=== PATIENT | male | born 1975 | race Caucasian/White ===

== ENCOUNTER 2016-12-30 17:30 | Inpatient (IN) | payer SELFPAY ==
[~2016-12-30] VITALS: Ht 172.7 cm; Wt 76.5 kg
--- NOTE | ~2016-12-30 | DS ---
PATIENT'S NAME: SRIDEVI ARRIETA [facility] AGE: 41 Y [address] ROOM: [address] [address] LOCATION: GICU ADMIT DATE: 12/30/2016 Discharge Summary DISCHARGE DATE: 12/31/2016 FAMILY PHYSICIAN: Physician, Unknown ATTENDING PHYSICIAN: Lizbet Aparicio The patient during this hospitalization. HOSPITAL COURSE: A 41-year-old gentleman with a known past medical history of end-stage liver disease who continued to drink and had multiple upper GI bleed secondary to his esophageal varices, was transferred here from outside facility with acute hypovolemic shock secondary to upper GI bleed. He was intubated and appropriate intravenous access was obtained. He was started on massive transfusion protocol given his low hemoglobin level. Gastroenterology consultation was obtained and upper endoscopy was undertaken. Our lining mechanic was able to band one varices and he recommended an emergent tips. After the endoscopy, the patient continued to be in hypovolemic shock. Attempts were made to transfer the patient out of our facility where an interventional radiologist available. Due to the lack of availability of the ICU beds at [facility], he could not be transferred over there. We continued to aggressively volume resuscitate this patient with minimal success given that his blood pressure continued to drop. His metabolic abnormalities were getting worse and I believe he went to disseminated intravascular coagulation. The patient went into cardiac arrest with asystole. He was coded per ACLS protocol with the return of circulation in about 7 minutes. Family was at bedside. The patient's prognosis was discussed with the family. Attempts were made to transfer the patient to [place] to an ICU who were gracious enough to accept the patient for emergent tips, but he was too unstable to be transferred. The patient's prognosis and current condition were discussed with the family including fiance and brother and they decided to make him comfort care rather than focusing on treating him at this point. The patient was made comfort care and soon after the patient . PRINCIPAL DIAGNOSES: 1. Acute hypovolemic shock. 2. Acute blood loss anemia. 3. Upper gastrointestinal bleed secondary to esophageal varices. 4. End-stage liver disease. MD ROSANA PAREKH/modl PATIENT'S NAME: SRIDEVI ARRIETA [facility] AGE: 41 Y [address] ROOM: [place] [address] LOCATION: [facility] ADMIT DATE: 12/30/2016 Discharge Summary DISCHARGE DATE: 12/31/2016 FAMILY PHYSICIAN: , Sumit ATTENDING PHYSICIAN: Lizbet Aparicio /[id number] d: 01/03/17614 t: 01/06/17 1121, DISCHARGE SUMMARY
--- NOTE | ~2016-12-30 | HP ---
PATIENT'S NAME: SRIDEVI ARRIETA [facility] AGE: 41 Y [address] ROOM: [place] [address] LOCATION: GICU ADMIT DATE: 12/30/2016 History & Physical DISCHARGE DATE: FAMILY PHYSICIAN: PHYSICIAN, UNKNOWN ATTENDING PHYSICIAN: ALFA QUINTANILLA DATE OF SERVICE: CHIEF COMPLAINT: Acute GI bleed, hemorrhagic shock. HISTORY OF PRESENT ILLNESS: This is a 41-year-old male with a known history of alcohol abuse, cirrhosis from this, recurrent upper GI esophageal bleeds, and multiple admissions including ICU stay 2 other times in the last 2 months who presents today to the emergency room in [place] with recurrent hematemesis and was noted to be in hemorrhagic shock. The patient had been having nausea and vomiting and still continues to drink and this has been going on for the past 2 days and hematemesis started last night and got to a point where it was severe enough and was brought to the emergency room for evaluation. The patient upon initial workup was noted to have a hemoglobin of 4 with low blood pressures and signs and symptoms consistent with hemorrhagic shock. The patient was given 4 units of PRBCs and due to persistence of nausea, vomiting, and hematemesis, the patient was intubated and transferred over to [facility] ICU here. The patient upon presentation here continued to have hematemesis with his blood pressures in the 60s/40s. The patient has just received 2 more units of PRBCs with 2 more to be given and an additional 2 units of FFP are in the works and these are being transfused emergently. The patient is also on Levophed drip. GI Service has been consulted and he is in the works to get emergent EGD. I have had a long discussion with the patient's brother and about the patient's state and they understand the patient has troubles with the continuing alcohol abuse despite his severe illness from it. PAST MEDICAL HISTORY: 1. Alcohol abuse. 2. Cirrhosis. 3. Upper GI bleed. SOCIAL HISTORY: The patient is known to have alcohol abuse. He is also smoker. Lives with girlfriend. FAMILY HISTORY: Significant for lung cancer in the father. MEDICATIONS: PATIENT'S NAME: SRIDEVI ARRIETA [facility] AGE: 41 Y [address] ROOM: [place] [address] LOCATION: GICU ADMIT DATE: 12/30/2016 History & Physical DISCHARGE DATE: FAMILY PHYSICIAN: PHYSICIAN, UNKNOWN ATTENDING PHYSICIAN: ALFA QUINTANILLA Per JAN. REVIEW OF SYSTEMS: As per HPI. All other systems were reviewed and are negative. OBJECTIVE: VITAL SIGNS: Blood pressure at presentation 56/41, temperature 98, and pulse 104. GENERAL: Intubated and sedated. HEAD: Normocephalic, atraumatic. NECK: Supple. No JVD. HEENT: Visible bright red blood over his mouth noted. SKIN: Without rashes or lesions. HEART: S1, S2. Regular rate and rhythm. LUNGS: Clear to auscultation bilaterally. ABDOMEN: Distended, but otherwise soft with positive bowel sounds. EXTREMITIES: Without edema. LABORATORY DATA: Hemoglobin level from [place] 4.0. ASSESSMENT AND PLAN: 1. Acute upper gastrointestinal bleed. This is in the setting of known variceal bleed, status post multiple banding. The patient is being aggressively volume resuscitated and he has received 4 units of packed red blood cells and I am giving 2 more units and we will continue to transfuse for as long as he needs volume resuscitation and until upper gastrointestinal bleed source is identified and possibly stopped. He is about to undergo emergent EGD currently. We will also give 2 units of fresh frozen plasma in this setting due to the patient receiving massive packed red blood cells transfusions. We will also give prophylactic ceftriaxone and GI is following closely. The patient if he survives this would be evaluated for a transjugular intrahepatic portosystemic shunt procedure at this point. 2. Cirrhosis from alcohol abuse. 3. Acute blood loss anemia. Manage as per acute upper gastrointestinal bleed. 4. Hemorrhagic shock. Managed as above. 5. Acute respiratory failure. The patient is intubated and sedated due to impending respiratory arrest due to massive hematemesis. ALFA QUINTANILLA MD PATIENT'S NAME: SRIDEVI ARRIETA [facility] AGE: 41 Y [address] ROOM: [address] [place] [address] LOCATION: GICU ADMIT DATE: 12/30/2016 History & Physical DISCHARGE DATE: FAMILY PHYSICIAN: PHYSICIAN, UNKNOWN ATTENDING PHYSICIAN: ALFA QUINTANILLA/loren /[id number] D: [id number] T: [id number] HISTORY & PHYSICAL
--- NOTE | ~2016-12-30 | CON ---
PATIENT'S NAME: SRIDEVI ARRIETA [facility] AGE: 41 Y [address] ROOM: [place] [address] LOCATION: GICU ADMIT DATE: 12/30/2016 Consultation DISCHARGE DATE: FAMILY PHYSICIAN: PHYSICIAN, UNKNOWN ATTENDING PHYSICIAN: ALFA QUINTANILLA REFERRING PHYSICIAN: VAL TILLEY MD The patient is in ICU 6202. REASON FOR CONSULT: GI bleed. HISTORY OF PRESENT ILLNESS: Mr. Mcmahon is a 41-year-old male, known to me from his previous admissions in September and then again in October of 2016 with upper GI bleed. The patient is known to have alcoholic cirrhosis of the liver and presented with upper GI bleed in September of 2016. At that time, he was found to have a bleeding antral ulcer, which was cauterized, clipped, as well as underwent distal esophageal variceal banding. The patient improved and was discharged to home only to continue drinking, whereby he presented again towards late October with upper GI bleed and was found to have remnant varices, which were banded along with clipping of one area of the previous banded ulcer, which was oozing. He also underwent paracentesis and was discharged home in stable condition on November 23, 2016. According to the history available, he has not been feeling well over the last 2 weeks, whereby he has had poor energy according to his girlfriend and then started throwing up blood this morning. Unfortunately, he continues to drink since after his discharge in early November up to one pint of vodka daily as tested by his girlfriend. He was seen in his local emergency room and was found to have a hemoglobin of 4 and was transferred here for further management. At this point, the patient is intubated and is actually oozing from his mouth as well as his area whereby central line was placed. Review of the labs reveals a hemoglobin of 6.0 after 6 units of packed RBCs (previous hemoglobin 4.0), INR of 2.2, platelets of 53,000, MCV of 107, white cell count of 9.3. Verbally, the patient has been given IV erythromycin, IV Rocephin, as well as IV Protonix, as well as IV bolus of octreotide 50 mcg, followed by 50 mcg an hour infusion. PAST MEDICAL HISTORY: As noted above with alcoholic cirrhosis of the liver, complicated with ascites and variceal banding, history of alcohol dependence, and hypertension. PAST SURGICAL HISTORY: EGD with banding and clipping, last procedure on November 19, 2016, as well as PATIENT'S NAME: SRIDEVI ARRIETA [facility] AGE: 41 Y [address] ROOM: [place] [address] LOCATION: GICU ADMIT DATE: 12/30/2016 Consultation DISCHARGE DATE: FAMILY PHYSICIAN: PHYSICIAN, UNKNOWN ATTENDING PHYSICIAN: ALFA QUINTANILLA abdominal paracentesis with removal of 5 L of ascitic fluid. MEDICATIONS: On discharge included: 1. Omeprazole 20 mg b.i.d. 2. Aldactone 50 mg daily. 3. Lisinopril and hydrochlorothiazide 10/12.5 mg daily. 4. Acetaminophen p.r.n. 5. Tramadol 50 mg p.r.n. 6. Multivitamin daily. It is not clear if the patient has been compliant with his medications and/or any kind of followups. It is noted in his discharge summary that he refused any consideration of referral for alcohol treatment or support with alcoholics anonymous. REVIEW OF SYSTEMS: None available. PHYSICAL EXAMINATION: GENERAL: The patient is intubated and sedated. VITAL SIGNS: His vital signs reveal blood pressure 114/60 on Levophed drip, heart rate of 94 per minute. He is intubated, sedated, and unable to respond to verbal commands. HEENT: Pupils are reactive to light. Nonicteric sclerae. NECK: Supple. CHEST: Bilateral poor air entry. HEART: S1, S2 normal. ABDOMEN: Very distended with evidence of ascites and an erythematous papular rash noted on his left flank area. Bowel sounds are decreased. EXTREMITIES: No edema. NEUROLOGIC: Unable to examine. LABORATORY DATA: Labs are reviewed and noted above. ASSESSMENT AND PLAN: A 41-year-old male with history of alcoholic cirrhosis of the liver, decompensated ascites, portal hypertension, previous episodes of variceal bleed and banding, with continued intake of alcohol, and now presenting with severe coagulopathy, INR of 2.2, platelets 53,000, MCV 107. Unable to calculate MELD score in view of nonavailability of labs. The patient has been given IV octreotide infusion as well as antibiotics as well as IV erythromycin as well as fresh frozen plasma with emergent endoscopy for diagnostic and therapeutic purposes. PATIENT'S NAME: SRIDEVI ARRIETA [facility] AGE: 41 Y [address] ROOM: [address] [place], [place] [address] LOCATION: [facility] ADMIT DATE: 12/30/2016 Consultation DISCHARGE DATE: FAMILY PHYSICIAN: PHYSICIAN, UNKNOWN ATTENDING PHYSICIAN: ALFA QUINTANILLA Intensivists are involved in view of his need for intubation as well as a possible need for a TIPS procedure in the near future. Further recommendations pending his clinical course. The patient's critical status has been discussed with his brother as well as his girlfriend in the waiting room. AVL TILLEY MD AM/loren /[id number] d: 12/30/162050 t: 12/31/16 0942, CONSULTATION REPORT
--- NOTE | ~2016-12-30 | OR ---
PATIENT'S NAME: SRIDEVI ARRIETA [facility] AGE: 41 Y [address] ROOM: [place] [address] LOCATION: [facility] ADMIT DATE: 12/30/2016 OR/Procedure Report DISCHARGE DATE: FAMILY PHYSICIAN: PHYSICIAN, UNKNOWN ATTENDING PHYSICIAN: ALFA QUINTANILLA SURGEON: Brooks Leone MD SORTING MACHINE OPERATOR: DATE OF PROCEDURE: 12/30/2016 Consent was done emergently. PROCEDURE: Right femoral central venous catheter insertion. PROCEDURE IN DETAIL: The patient was put in supine position. The right groin area was prepped and draped in usual fashion, the femoral pulse was then located, then an 18-gauge needle was used to puncture the femoral vein. A 0.035 J-tipped wire was inserted through the needle without any resistance, the needle was removed and then the 10 and 12-Albanian soft tissue dilator was advanced over the wire without any resistance. The 12-Albanian catheter was advanced over the wire without any resistance. Thus 3 ports of the catheter was aspirated for dark venous blood and then flushed with sterile saline. The patient tolerated the procedure well. There were no immediate complications. Thank you for allowing me to participate in the care of this patient. MD SUSAN STARR/loren /[id number] d: 12/31/16 0245 t: 12/31/16 1013, OPERATIVE SUMMARY
--- NOTE | ~2016-12-30 | CON ---
PATIENT'S NAME: SRIDEVI ARRIETA [facility] AGE: 41 Y [address] ROOM: [address] [address] LOCATION: GICU ADMIT DATE: 12/30/2016 Consultation DISCHARGE DATE: FAMILY PHYSICIAN: PHYSICIAN, UNKNOWN ATTENDING PHYSICIAN: ALFA QUINTANILLA DATE OF CONSULTATION: 12/30/2016 REFERRING PHYSICIAN: VAL TILLEY MD REASON FOR CONSULTATION: Hypovolemic shock and GI bleed. HISTORY OF PRESENTING ILLNESS: This is a 41-year-old male, who has a history of alcohol abuse and esophageal varices. The last admission to [facility] was at the end of October of 2016. He was recently banded, apparently the patient presented to the [place] with an acute upper GI bleed and massive hematemesis, subsequently he was intubated and transferred here from [place] for lack of space. Upon arrival, the patient was severely hypotensive, oozing from his mouth and nares. Further history is currently not available. ALLERGIES: NO KNOWN DRUG ALLERGIES. PAST MEDICAL HISTORY: Illnesses include: 1. Alcohol abuse and dependency. 2. Alcoholic cirrhosis of the liver. 3. Multiple GI bleeds with esophageal varices, status post recent banding. 4. Essential hypertension. CURRENT MEDICATIONS: 1. Lisinopril. 2. Theragran daily. 3. Prilosec 20 mg. 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 He has a significant history of alcohol abuse drinking approximately 4 to 5 mixed drinks a day, he has recently apparently cut back, but he still drinks more than a pint of vodka a day. He does have a history of 10 to [id number] history of smoking tobacco. There is no history of illicit drug abuse at least in the chart. PATIENT'S NAME: SRIDEVI ARRIETA [facility] AGE: 41 Y [address] ROOM: [address] [place] [id number] LOCATION: GICU ADMIT DATE: 12/30/2016 Consultation DISCHARGE DATE: FAMILY PHYSICIAN: PHYSICIAN, UNKNOWN ATTENDING PHYSICIAN: ALFA QUINTANILLA REVIEW OF SYSTEMS: Currently unavailable. The patient is intubated and sedated. FAMILY HISTORY: Currently unobtainable as the patient is intubated and sedated. PHYSICAL EXAMINATION: GENERAL: On initial evaluation, the patient is lying in bed, comfortable. He is intubated and sedated. VITAL SIGNS: Included systolic in the 60s with a heart rate 120, respiratory rate 14 with a SpO2 of 92% on 60% FiO2. HEENT: Eyes are nonicteric. Pupils equal, reactive to light. HEENT: Normocephalic, atraumatic. NECK: Supple. No lymphadenopathy or jugular venous distention noted. LUNGS: Decreased air entry bilaterally. There are no wheezing or crackles. HEART: S1, S2. No murmurs, rubs, or gallops are appreciated. ABDOMEN: Soft, nontender. It is distended, with positive shifting thrill. LOWER EXTREMITIES: No edema, clubbing, or cyanosis noted. LABORATORY DATA: Laboratory data that is available at the time of evaluation includes white cell count of 9.3, hemoglobin 6.0, MCV 109, and platelets of 53. Protime is 25.1. His INR is 2.2. ANC 6.5. Compared to the end of October, his actual hemoglobin on November 22 was 7.7 and usually running around 8, so not a huge difference in hemoglobin, although to be noted that this hemoglobin was taken after transfusion possibly. IMPRESSION: 1. Hypovolemic shock secondary to gastrointestinal bleed. 2. Esophageal varices. 3. Currently possible acute kidney injury. 4. Liver cirrhosis. RECOMMENDATIONS: 1. At the current point, we will transfuse packed RBCs. The patient was stabilized using IV fluids and 6 packed RBCs. We will start with fresh frozen plasma and platelets. 2. GI was consulted. 3. A 12-Botswanan right femoral line was inserted. 4. The patient will have an endoscopy and possible TIPS. 5. We will follow up. We will start the patient on octreotide and Protonix drips. 6. SCD pumps. PATIENT'S NAME: SRIDEVI ARRIETA [facility] AGE: 41 Y [address] ROOM: [address] [place], [place] [address] LOCATION: [facility] ADMIT DATE: 12/30/2016 Consultation DISCHARGE DATE: FAMILY PHYSICIAN: PHYSICIAN, UNKNOWN ATTENDING PHYSICIAN: ALFA QUINTANILLA We will continue to follow up with you. I spent 75 minutes of critical care time in the direct care of this patient not including time spent inserting line. Thank you for allowing me to participate in the care of the patient. MD SUSAN STARR/loren /[id number] d: 12/31/16311 t: 12/31/16 1016, CONSULTATION REPORT
[~2016-12-30 17:30] MED LIST: ALDACTONE50 MG PO; ASPIRIN325 MG PO; BENADRYL ALLERG25 MG PO; LISINOPRIL-HCT1 EACH PO; NICOTINE PATCH1 EAC1 TRANS; PRILOSEC20 MG PO; THERAGRAN-M1 TAB PO; TYLENOL EXTRA500 MG PO; ULTRAM50 MG PO; VITAMIN B-12500 MCG PO
[2016-12-30 19:17] LABS: HEMATOCRIT 21.7 % (37.0-53.0); MPV 11.2 fl (9.4-12.4); RBC 2.02 M/uL (4.00-6.00); WBC 9.3 K/uL (4.0-11.0)
[2016-12-30 19:21] LABS: MCH 29.7 pg (27.0-34.0); MCHC 27.6 gm/dL (32.0-36.5); MCV 107.4 fl (83.0-98.0); PLATELET COUNT 53 K/uL (150-450); RDW-CV 15.2 % (11.9-14.6)
[2016-12-30 19:36] LABS: INR - (THERAPEUTIC) 2.2 (0.9-1.1); PROTIME 25.1 SECONDS (9.6-11.1)
[2016-12-30 19:48] LABS: ABSOLUTE NEUTROPHIL CT (ANC) 6.5 K/uL (1.4-9.0); LYMPHOCYTE % 21 %; MONOCYTE # 0.8 K/uL (0.0-1.0); SEGMENTED NEUTROPHIL # 6.5 K/uL (1.4-9.0); SEGMENTED NEUTROPHIL % 70 %
[2016-12-30 21:12] LABS: ALPHA ANGLE 47 degrees (70-81); CLOTTING TIME 121 seconds (43-82); MAXIMUM CLOT FIRMNESS 38 mm (51-72)
[2016-12-30 21:44] LABS: HEMOGLOBIN 8.2 g/dL (12.0-17.0)
[2016-12-30 21:45] LABS: HEMATOCRIT 28.3 % (37.0-53.0)
[2016-12-31 01:03] LABS: HEMOGLOBIN 6.6 g/dL (12.0-17.0)
[2016-12-31 01:57] LABS: HEMATOCRIT 22.1 % (37.0-53.0); HEMOGLOBIN 6.6 g/dL (12.0-17.0); LACTATE > 15.0 mEq/L (0.50-1.60)
[2016-12-31 02:12] LABS: BICARBONATE 5.7 mmol/L (18.0-23.0); PCO2 28 mmHg (35-45); PO2 90 mmHg (80-90)
[2016-12-31 02:14] LABS: INR - (THERAPEUTIC) 1.8 (0.9-1.1); PROTIME 19.4 SECONDS (9.6-11.1)
[2016-12-31 02:17] LABS: CREATININE 2.7 mg/dL (0.6-1.3)
[2016-12-31 02:23] LABS: ANION GAP 34.6 (10.0-19.0); POTASSIUM 6.6 mMol/L (3.7-5.1)
[2016-12-31 02:57] LABS: HEMATOCRIT 20.8 % (37.0-53.0)
[2016-12-31 03:01] LABS: HEMOGLOBIN 6.2 g/dL (12.0-17.0)
--- NOTE | 2016-12-31 03:03 | NUR ---
Patient extubated at 0300, and was placed on comfort care measures.8
[2016-12-31 03:04] LABS: LACTATE > 15.0 mEq/L (0.50-1.60)
[2016-12-31 03:20] LABS: INR - (THERAPEUTIC) 2.1 (0.9-1.1); PROTIME 23.5 SECONDS (9.6-11.1)
== END 2016-12-31 04:51 | disposition expired | DRG 377 ==
LOC: GICU 18:36
PROVIDERS: Internal Medicine; ADMIT Internal Medicine
DX: K92.0 Hematemesis (principal); J96.00 Acute respiratory failure, unspecified whether with hypoxia or hypercapnia; D65 Disseminated intravascular coagulation [defibrination syndrome]; R57.1 Hypovolemic shock; N17.9 Acute kidney failure, unspecified; K76.6 Portal hypertension; D68.9 Coagulation defect, unspecified; D62 Acute posthemorrhagic anemia; F17.210 Nicotine dependence, cigarettes, uncomplicated; I85.01 Esophageal varices with bleeding; I46.9 Cardiac arrest, cause unspecified; F10.20 Alcohol dependence, uncomplicated; K70.31 Alcoholic cirrhosis of liver with ascites; I10 Essential (primary) hypertension; Z66 Do not resuscitate
CPT/HCPCS: C9113; J0171; J0696; J1364; J2270; J2354; J7030; J7040; J7050; J7060; J7120; P9016; P9017; P9035; P9045; P9047